=== PATIENT | female | born 1975 | race Two or more races ===

== ENCOUNTER → 2024-11-19 | Outpatient (CLI) | payer BC, SELFPAY ==
--- NOTE | 2024-11-19 14:00 | XR_ITS ---
Examination: Thyroid sonography complete TECHNIQUE: Grayscale sonographic images thyroid lobes with color flow analysis Exam date and time: November 19, 2024 1350 hours INDICATIONS: Abnormal thyroid laboratory values on examination October 11, 2024 FINDINGS: Right thyroid 4.8 x 1.6 x 1.2 cm Left thyroid 4.4 x 0.9 x 1.2 cm No thyroid nodules IMPRESSION: No thyroid nodules Consider correlation with oral I-123 thyroid uptake and scan as clinical warranted
== END | disposition home or self-care (01) ==
LOC: CDIM 13:16
PROVIDERS: PCP Family Medicine; Referring Provider Physician Assistant; Visit Provider Physician Assistant
DX: R94.6 Abnormal results of thyroid function studies (principal)
CPT/HCPCS: 76536

== ENCOUNTER → 2025-01-22 | Outpatient (CLI) | payer BC, SELFPAY ==
--- NOTE | 2025-01-22 08:48 | XR_ITS ---
Examination: Esophagram standard Fluoroscopy 20 spot fluoroscopic films of the esophagus Upright PA chest single view Upright soft tissue lateral neck single view Exam date and time: January 22, 2025 0917 hours INDICATIONS: Palpable lump anterior throat with difficulty swallowing 10 years TECHNIQUE AND FINDINGS: Upright PA chest single view demonstrates normal heart size, lungs are clear Soft tissue lateral neck demonstrates mild to moderate degenerative disc disease C5-C6, normal epiglottis Patient swallowed thin barium with 20 spot fluoroscopic films of the esophagus obtained, 0.23 minutes of fluoroscopy Primary peristaltic esophageal waves noted No gastroesophageal reflux No sliding esophageal hernia No constricting esophageal lesion IMPRESSION: Primary peristaltic esophageal waves. No esophageal lesion Given the patient's presentation, consider CT soft tissue neck post intravenous contrast follow-up
== END | disposition home or self-care (01) ==
PROVIDERS: PCP Physician Assistant; Referring Provider Physician Assistant; Visit Provider Physician Assistant
DX: E03.9 Hypothyroidism, unspecified (principal)
CPT/HCPCS: 74220; A4699

== ENCOUNTER → 2025-04-29 | Outpatient (CLI) | payer BC, SELFPAY ==
--- NOTE | 2025-04-29 09:00 | XR_ITS ---
Examination: CT soft tissue neck, with intravenous contrast. CT soft tissue neck without intravenous contrast 2-D coronal reconstructions. 2-D sagittal reconstructions. Date and time of exam :April 29, 2025 1001 hours INDICATIONS: Patient feels a lump in throat 10 years, difficulty swallowing. CTDI: vol (mGy):37.6 DLP: (mGycm):983 Technique: 1.25 mm axial sections of the neck of the obtained, pre and post intravenous administration 50 cc [id number] Coronal and sagittal reconstructions have been obtained. Low dose protocols were performed. One or more of the following dose reduction techniques were used; automated exposure control, adjustment of the mA and/or KV according to patient size, use of iterative reconstruction technique. Findings: Maxillary antra are clear No enhancing nasopharyngeal or oropharyngeal mass Nonspecific carotid triangle submental lymphadenopathy Symmetrical submandibular glands The larynx appears normal Thyroid lobes are not enlarged no thyroid nodules Normal epiglottis Satisfactory alignment cervical vertebral bodies IMPRESSION: No soft tissue neck mass Given the patient's presentation, consider repeat standard esophagram follow-up
[2025-04-29 09:52] LABS: HCG Qualitative,Urine Negative
== END | disposition home or self-care (01) ==
LOC: CCTX 08:15
PROVIDERS: PCP Family Medicine; Referring Provider Physician Assistant; Visit Provider Physician Assistant
DX: R13.10 Dysphagia, unspecified (principal)
CPT/HCPCS: 70492; 81025; A4649; Q9967

== ENCOUNTER → 2025-08-18 | Outpatient (CLI) | payer BC, SELFPAY ==
--- NOTE | 2025-08-18 13:15 | XR_ITS ---
Examination: Screening digital mammography, bilateral Computer aided detection 3-D breast Tomosynthesis, bilateral Date and time of exam: August 18, 2025, 11:55 a.m., compared to mammograms dating to April 01, 2015 Indication: Screening Technique: Nonmagnified MLO, CC views of the breasts to been obtained, reconstructed from 3-D Tomosynthesis images. R2 computer aided detection program utilized for evaluation of suspicious masses and/or abnormal calcifications. 3-D Tomosynthesis images obtained. Findings: The breasts are heterogeneously dense, which may obscure small masses Breast biopsy marker outer upper left breast posterior depth No interval suspicious masses Impression: BI-RADS category II: Benign Findings. Recommend 1 year follow-up mammogram.
== END | disposition home or self-care (01) ==
LOC: CDIM 11:47
PROVIDERS: Referring Provider Physician Assistant; Visit Provider Physician Assistant
DX: Z12.31 Encounter for screening mammogram for malignant neoplasm of breast (principal); R92.323 Mammographic fibroglandular density, bilateral breasts
CPT/HCPCS: 77063; 77067